=== PATIENT | female | born 1965 | race Caucasian/White ===

== ENCOUNTER 2022-02-01 09:53 | Outpatient (CLI) | payer BC, SELFPAY ==
[2022-02-01 20:37] LABS: Kit Draw Collected
== END 2022-02-01 09:54 | disposition home or self-care (01) ==
LOC: ANHGOSHLAB 09:55
PROVIDERS: PCP Family Medicine; Visit Provider Physician Assistant
DX: N95.0 Postmenopausal bleeding (principal); D72.820 Lymphocytosis (symptomatic)
CPT/HCPCS: 36415

== ENCOUNTER → 2022-02-02 13:48 | Outpatient (CLI) | payer BC, SELFPAY ==
--- NOTE | ~2022-02-02 | US_ITS ---
Pelvic ultrasound. Clinical History: Postmenopausal bleeding Technique: Realtime transabdominal and transvaginal scanning of the pelvis was performed. Color flow Doppler and Doppler spectral analysis were performed. Findings: The uterus is anteverted. The endometrial stripe has a thickness of up to 7 mm. Small intr amural fibroid measures 1.5 cm in diameter. The right ovary measures 2.0 x 1.4 x 1.2 cm. No significant right ovarian or adnexal mass is seen. The left ovary measures 1.5 x 0.8 x 1.1 cm. No significant left ovarian or adnexal mass is seen. Vascular flow present in both ovaries on Doppler spectral analysis. There is no evidence of free fluid in the cul de sac. Impression: Endometrial stripe is minimally thickened for a postmenopausal woman, unless the patient is on hormon e replacement therapy. Given the mild thickening, advise further workup to evaluate for endometrial h yperplasia versus endometrial neoplasm. Reviewed, dictated and finalized at location [] [employer]ST[employer]ER Impression: Endometrial stripe is minimally thickened for a postmenopausal woman, unless th e patient is on hormone replacement therapy. Given the mild thickening, advise further workup to evaluate for endometrial hyperplasia versus endometrial neopl asm.
== END ==
PROVIDERS: PCP Physician Assistant; Visit Provider Physician Assistant
DX: N95.0 Postmenopausal bleeding (principal)
CPT/HCPCS: 76830; 76856

== ENCOUNTER 2022-03-02 01:23 | Day surgery (SDC) | payer BC, SELFPAY ==
[2022-02-23 13:43] VITALS: BMI 24.2
--- NOTE | 2022-02-23 14:06 | SUR.PREOP ---
Report to the Outpatient Waiting Room, entrance under the green pavilion located off [facility], at time 0900 on date 03/02/21. Planned Procedure Time: 1100. Time changes happen often and if your time is changed the preop area will call you the afternoon before. - You and your visitor will be asked to self-screen and do not enter if you have any COVID symptoms. - Only one visitor is requested with a max of two and NO children visitors are allowed at this time. - The patient visitor may be requested to leave or wait in car when not with patient due to distancing restrictions. - A mask is optional within the hospital. Patients may have clear liquids (water, carbonated beverages, clear teas, apple juice) until 3 hours prior to surgery with a maximum of 20 ounces (0800). - No food from midnight until time of surgery - Infants may have breast milk until 4 hours before surgery, formula 6 hours prior to surgery. - Children will be allowed to drink immediately following surgery. If applicable, please bring a bottle or sippy cup to assist with drinking. Juice, water, soda, and popsicles are readily available. For infants on formula, please bring formula the day of surgery. Pacifiers are allowed. Take the following medications with a SIP of water the morning of surgery: Prozac Medications to discontinue per physician N/A Date to take last dose N/A Please no make-up, nail hong konger, hairspray, perfume, deodorant, or body powder the day of surgery. No jewelry (including any body piercings) or valuables the day of surgery, leave them at home. Please take a shower or bath the night before, or the morning of, surgery with an antibacterial soap. Wear comfortable, loose fitting clothing. Children are encouraged to wear pajamas. - Jewelry must be removed prior to entering the operating room. Rings and piercings that are not removed may be cut off. - The hospital will not accept responsibility for valuables. - Please leave all valuables, including medications, at home the day of surgery. If you are going home after surgery, a licensed local bulk driver must drive you home. - NO public transportation without another adult if you receive anesthesia. - We recommend that an adult stay with you for 24 hours following discharge. - We also recommend that you do not drive, make important decision, drink alcoholic beverages, or take any drugs that were not prescribed by your health care provider for at least 24 hours after your discharge time. For Pediatric surgeries, we recommend two adults accompany the child home. Follow any additional instructions given to you from your surgeon. If you or anyone in your household have experienced Covid symptoms in the past week, please notify your surgeon or the nurse liaison at the phone number below for possible testing. Telephone instructions given to patient and asked if any additional questions and then verbalized understanding. Patient advised to call surgeon office or pre surgery nurse liaison [phone] if any additional questions.
--- NOTE | 2022-02-28 07:56 | PM.IMHP ---
H&P: HPI History of Present Illness Date/Time: 02/28/22 07:56 Chief Complaint: Postmenopausal bleeding Narrative: This is a 56-year-old female admitted for hysteroscopy dilatation curettage secondary to postmenopausal bleeding. She none. For 2 years. She had an episode of bleeding and underwent ultrasound showed thickened endometrium for age. Risks and benefits of this procedure reviewed including exclusive of , aspiration, bleeding, transfusion, perforation under bowel, bladder, ureter, or other internal organs with need for open laparotomy. She received the ACOG handout entitled hysteroscopy as well as dilatation curettage. She had all questions answered. She asked to proceed PMF Past Medical History Medical History Allergic rhinitis Family History Family History Mother Hypertension Family history of dementia Father Acute myocardial infarction Sibling Family history of malignant neoplasm of breast in first degree relative Other Cerebrovascular accident Depression Family history of cardiovascular disease Family history of malignant neoplasm of breast Social History Social History Smoking status: Never smoker Second hand tobacco smoke exposure: No Alcohol intake: former Alcohol use details: Rarely Substance use: never Substance use type: does not use Lack of Transportation: No Lack of Food: Never True Current Housing: I Have Housing Concerned About Future Housing: No Difficulty Paying Gas/Electric Bills: No Difficulty Paying for Meds: No Currently Unemployed: No Education: Master's Degree or Higher Difficulty w/ Childcare or Family Care: No Living arrangements: alone Gender identity (if verbalized by the patient): Female Spiritual care concerns: No Meds Home Medications and Allergies Home Medications Medication Instructions Recorded Confirmed Type metoprolol succinate 25 mg See Rx Instructions .Route 10/03/21 02/23/22 Rx tablet,extended release 24 hr .COMPLEX #90 tabs doxycycline monohydrate 100 mg 100 mg PO BID #20 caps 02/22/22 02/23/22 Rx capsule alprazolam 0.5 mg tablet (Xanax) 0.5 mg PO QHS PRN Insomnia 02/23/22 02/23/22 History cetirizine 10 mg tablet (Zyrtec) 10 mg PO DAILY 02/23/22 02/23/22 History fluoxetine 40 mg capsule (Prozac) 40 mg PO DAILY 02/23/22 02/23/22 History Allergies Allergy/AdvReac Type Severity Reaction Status Date / Time amoxicillin [From Augmentin] Allergy Mild Hives Verified 02/23/22 14:08 ciprofloxacin Allergy Mild hives Verified 02/23/22 14:08 clavulanic acid Allergy Mild Hives Verified 02/23/22 13:44 [From Augmentin] Exam Const: General: cooperative, healthy appearing and comfortable Nutritional Appearance: average body habitus Orientation/consciousness: oriented to person, oriented to place and oriented to time Resp: Effort & Inspection: normal respiratory effort Cardio: Rate: regular rate Rhythm: regular rhythm Heart sounds: S1 normal heart sound present and S2 normal heart sound present GI: Inspection: normal to inspection : External Female Exam: normal external appearance Speculum Exam - Vagina: normal appearance of the vagina Speculum Exam - Cervix: normal appearance of the cervix Bimanual exam- vagina & uterus: uterine size normal Bimanual Exam- Adnexa, other: normal adnexae Assessment and Plan Assessment and plan (1) Postmenopausal bleeding: Code(s): N95.0 - Postmenopausal bleeding Status: Acute Plan Hysteroscopy/dilatation curettage
--- NOTE | 2022-03-02 07:11 | WPDHPUPDATE1 ---
History and Physical Update Update Date/Time: 03/02/22 07:11 History and Physical has been reviewed, including an updated exam of the patient. There are NO changes in the patient's condition. Risks, benefits, and alternatives have been discussed and questions answered. Patient agrees to proceed with procedure.
[2022-03-02 10:29] VITALS: BP 144/76; PULSE 65; RESP 20; TEMP 36.4; O2SAT 100
[2022-03-02] MEDS: ACETAMINOPHEN 500 MG TABLET 1000 MG PO (10:51)
--- NOTE | 2022-03-02 10:57 | WPDANESEPPF ---
Anes - Initial Pre Proc Eval Procedure: Operation Date: 03/02/22 11:00 Proposed Procedures p Hysteroscopy Dilation and Curettage - Shalom Leija MD Date/Time: 03/02/22 10:57 Surgeon: Shalom Leija MD Pre Op Diagnosis: Post Menopausal Bleeding Patient Data Age: 56 Gender: F Height: 1.68 m Weight: 68.1 kg Allergies Allergy/AdvReac Type Severity Reaction Status Date / Time ciprofloxacin Allergy Mild hives Verified 03/02/22 10:32 clavulanic acid Allergy Mild Hives Verified 03/02/22 10:32 [From Augmentin] Home Medications Medication Instructions Recorded Confirmed Type metoprolol succinate 25 mg See Rx Instructions .Route 10/03/21 02/23/22 Rx tablet,extended release 24 hr .COMPLEX #90 tabs doxycycline monohydrate 100 mg 100 mg PO BID #20 caps 02/22/22 03/02/22 Rx capsule alprazolam 0.5 mg tablet (Xanax) 0.5 mg PO QHS PRN Insomnia 02/23/22 03/02/22 History cetirizine 10 mg tablet (Zyrtec) 10 mg PO DAILY 02/23/22 02/23/22 History fluoxetine 40 mg capsule (Prozac) 40 mg PO DAILY 02/23/22 02/23/22 History hydrocodone 5 mg-acetaminophen 325 1 tablet PO Q4H PRN pain #14 tabs 03/02/22 Rx mg tablet Patient hx anesthesia problems: none Family hx anesthesia problems: none Results Review: All pre-operative results and documents have been reviewed as part of the pre-operative evaluation. [facility] Past Medical History Medical History Allergic rhinitis Family History Family History Mother Hypertension Family history of dementia Father Acute myocardial infarction Sibling Family history of malignant neoplasm of breast in first degree relative Other Cerebrovascular accident Depression Family history of cardiovascular disease Family history of malignant neoplasm of breast Social History Social History Smoking status: Never smoker Second hand tobacco smoke exposure: No Alcohol intake: former Alcohol use details: Rarely Substance use: never Substance use type: does not use Lack of Transportation: No Lack of Food: Never True Current Housing: I Have Housing Concerned About Future Housing: No Difficulty Paying Gas/Electric Bills: No Difficulty Paying for Meds: No Currently Unemployed: No Education: Master's Degree or Higher Difficulty w/ Childcare or Family Care: No Living arrangements: alone Gender identity (if verbalized by the patient): Female Spiritual care concerns: No Anes - Eval Final PreProcedure Day of Procedure 03/02/22 10:57 Patient weight: normal Heart: regular rate and rhythm Lungs: clear to auscultation Airway: Mallampati scale class II Neurological: alert and oriented Last oral intake: >/= 8 hours ASA classification: II Emergent: no Anesthetic plan: proceed Anesthesia type and monitoring: general GIVS and standard monitoring Results Review: All pre-operative results and documents have been reviewed as part of the pre-operative evaluation. Informed Consent: The patient's anesthetic plan and its attendant risks and benefits were discussed with the patient/family/POA. Questions were solicited and answers provided to the satisfaction of the patient/family/POA.
[2022-03-02] MEDS: LACTATED RINGERS 1,000 ML 30 ML IV CONT (11:00)
[2022-03-02] MEDS: LIDOCAINE 1% BUFFERED WITH 8.4% SODIUM BICARB 1 ML SYRINGE 10 ML INFILTRATE (12:07)
--- NOTE | 2022-03-02 12:16 | W.PM.PROC2 ---
Procedure Note - Detailed Date of Procedure 03/02/22 Pre-op Diagnosis Post Menopausal Bleeding Post-op Diagnosis Other (Uterine polyp) Procedure Performed hysteroscopy/polypectomy Surgeon Shalom Leija MD Anesthesia MAC and Local Indications this is a 56-year-old female with postmenopausal bleeding Findings a benign-appearing uterine polyp was noticed at the uterine fundus. The remainder of the uterine cavity appeared within normal limits Description of Procedure patient was prepped draped in the normal sterile fashion placed in dorsal lithotomy position. Under excellent IV sedation weighted speculum placed in posterior fornix vagina. Anterior lip of the cervix grasped with single-tooth tenaculum 2.5cc of% xylocaine anesthesia placed at 2, 4 8, 10 cervix. Uterus sounded to 8cm. Serial dilatation fragmented dilators performed followed by passes the via hysteroscopy hysteroscope. Normal saline was used as visualizing medium. The uterine polyp was seen the uterine polyp was resected with the avita machine blood loss was estimated about 5cc. The instruments withdrawn the patient tolerated the procedure well. All sponge, needle, instrument counts were correct. No immediate complications Estimated Blood Loss 5 Drains No Packing No Pathology Yes Complications No immediate complications Condition Stable Disposition PACU
[2022-03-02 12:19] VITALS: BP 79/46; PULSE 66; RESP 10; O2SAT 100
[2022-03-02 12:45] VITALS: BP 88/56; PULSE 64; RESP 14; O2SAT 100
[2022-03-02 13:00] VITALS: BP 123/78; PULSE 81; RESP 16
[2022-03-02 13:35] VITALS: BP 131/78; PULSE 64; RESP 16
== END 2022-03-02 13:40 | disposition home or self-care (01) ==
PROVIDERS: PCP Family Medicine; Visit Provider Obstetrics & Gynecology
PROC: 0U5B8ZZ Destruction of Endometrium, Via Natural or Artificial Opening Endoscopic (ICD-10-PCS; CPT 58563; principal; 2022-03-02 11:00)
DX: N95.0 Postmenopausal bleeding (principal); N84.0 Polyp of corpus uteri
CPT/HCPCS: 58558; 88305; A9270; J2250; J2704; J3010; J7120

== ENCOUNTER → 2022-04-20 10:24 | Outpatient (CLI) | payer BC, SELFPAY ==
--- NOTE | ~2022-04-20 | MM_ITS ---
EXAMINATION: MM screening dominique BI w iker HISTORY: Screening TECHNIQUE: Craniocaudal and mediolateral oblique 3-D tomosynthesis images were obtained and synthetic 2-D images were generated. CAD analysis was submitted and interpreted. COMPARISON: 09/10/2013 BREAST PARENCHYMAL COMPOSITION: The breasts are heterogeneously dense, which may obscure small masses FINDINGS: There are scattered nodular asymmetries in the right breast in the upper outer quadrant of the left breast. There are scattered benign calcifications. No discrete architectural distortion is s een. IMPRESSION: 1. Bilateral nodular asymmetries. 2. Additional mammographic views and possible breast ultrasound are recommended. BI-RADS Category 0: Incomplete: Needs additional imaging evaluation. Reviewed, dictated and finalized at location B. OPERATOR IMPRESSION: 1. Bilateral nodular asymmetries. 2. Additional mammographic views and possible breast ultrasound are recommended . BI-RADS Category 0: Incomplete: Needs additional imaging evaluation.
== END ==
PROVIDERS: PCP Family Medicine; Visit Provider Family Medicine
DX: Z12.31 Encounter for screening mammogram for malignant neoplasm of breast (principal); R92.8 Other abnormal and inconclusive findings on diagnostic imaging of breast
CPT/HCPCS: 77063; 77067

== ENCOUNTER 2022-05-09 11:13 | Outpatient (CLI) | payer BC, SELFPAY ==
--- NOTE | ~2022-05-09 | MMUS_ITS ---
EXAMINATION: MM diagnostic dominique BI w iker, US breast BI complete HISTORY: Follow-up bilateral nodular asymmetries. TECHNIQUE: Additional 3-D tomosynthesis images of the breasts were performed and synthetic 2-D images were generated. CAD analysis was submitted and interpreted. High resolution bilateral complete breas t ultrasound was performed. COMPARISON: Comparison to multiple prior studies sequentially, with oldest reviewed study dated 09/10. BREAST PARENCHYMAL COMPOSITION: The breasts are heterogeneously dense, which may obscure small masses FINDINGS: MAMMOGRAPHIC FINDINGS: There is a a mass in the upper inner quadrant of the right breast. There are no discrete masses, susp icious calcifications or architectural distortion in the left breast to suggest malignancy. ULTRASOUND: Complete bilateral US of all 4 quadrants of the breasts and retroareolar region was reviewed. There a re multiple bilateral breast cysts. In the right breast at 10:00, 2 cm from the nipple there is an ov al hypoechoic mass measuring 8 mm maximum dimension with echogenic hilum and slightly irregular gino ns, parallel orientation, no posterior features and no internal vascularity. This likely represents a n intramammary lymph node. No suspicious masses are identified in the left breast to suggest malignan cy. IMPRESSION: 1. Probable benign right breast mass at 10:00, 2 cm from the nipple. 2. Recommend 6 month follow-up diagnostic right mammogram and ultrasound BI-RADS category 3, probably benign findings. Reviewed, dictated and finalized at location A. IMPRESSION: 1. Probable benign right breast mass at 10:00, 2 cm from the nipple. 2. Recommend 6 month follow-up diagnostic right mammogram and ultrasound BI-RADS category 3, probably benign findings.
== END 2022-05-09 11:14 | disposition home or self-care (01) ==
LOC: ANHIMG 11:15
PROVIDERS: PCP Family Medicine; Visit Provider Family Medicine
DX: R92.8 Other abnormal and inconclusive findings on diagnostic imaging of breast (principal)
CPT/HCPCS: 76641; 77062; 77066; G0279

== ENCOUNTER → 2022-12-18 14:15 | Outpatient (CLI) | payer BC, SELFPAY ==
--- NOTE | ~2022-12-18 | MMUS_ITS ---
EXAMINATION: MM diagnostic dominique RT w iker, US breast RT limited HISTORY: Six-month follow-up for probably benign right breast mass TECHNIQUE: Craniocaudal, mediolateral, and mediolateral oblique 3-D tomosynthesis images of the right breast were performed and synthetic 2-D images were generated. CAD analysis was submitted and interp reted. High resolution limited right breast ultrasound was performed. COMPARISON: 05/09/2022, 04/20/2022, 09/10/2013 BREAST PARENCHYMAL COMPOSITION: The breasts are heterogeneously dense, which may obscure small masses . FINDINGS: MAMMOGRAPHIC FINDINGS: There is a stable 7 mm circumscribed low-density mass in the far posterior third of the breast at the 3:00 location, 7 cm from the nipple. There has been no suspicious interval change. ULTRASOUND: The previously described mass at the 10:00 location of the right breast is no longer identified. Ther e is a 3 mm x 2 mm oval, circumscribed, parallel, hypoechoic mass with no posterior features or inter nal vascularity at the 1:00 location, 2 cm from the nipple. There is a 7 mm x 3 mm oval, circumscribe d, parallel, hypoechoic mass with no posterior features or internal vascularity at the 1:00 location, 4 cm from the nipple. IMPRESSION: 1. Probably benign right breast masses. 2. Recommend 6 month follow-up diagnostic mammogram and ultrasound. BI-RADS category 3, probably benign findings. Reviewed, dictated and finalized at location A. IMPRESSION: 1. Probably benign right breast masses. 2. Recommend 6 month follow-up diagnostic mammogram and ultrasound. BI-RADS category 3, probably benign findings.
== END ==
PROVIDERS: PCP Family Medicine; Visit Provider Family Medicine
DX: R92.8 Other abnormal and inconclusive findings on diagnostic imaging of breast (principal)
CPT/HCPCS: 76642; 77061; 77065; G0279

== ENCOUNTER 2023-08-02 12:55 | Outpatient (CLI) | payer BC, SELFPAY ==
--- NOTE | ~2023-08-02 | MMUS_ITS ---
EXAMINATION: MM diagnostic dominique BI w iker, US breast RT complete HISTORY: Follow-up breast masses TECHNIQUE: Additional 3-D tomosynthesis images of the breasts were performed and synthetic 2-D images were generated. CAD analysis was submitted and interpreted. High resolution complete right breast ul trasound was performed. COMPARISON: Comparison to multiple prior studies sequentially, with oldest reviewed study dated 09/10. BREAST PARENCHYMAL COMPOSITION: Dense: The breasts are heterogeneously dense, which may obscure small masses FINDINGS: MAMMOGRAPHIC FINDINGS: There are stable right breast masses by mammography. No new masses, calcifications or architectural d istortion in either breast to suggest malignancy. ULTRASOUND: Complete US of all 4 quadrants of the right breast and retroareolar region was reviewed. At 1:00, 2 c m from the nipple, there is a 3 mm cyst. At 1:00, 4 cm from the nipple, there is a benign-appearing 7 mm intramammary lymph node. At 9:00, 1 cm from the nipple, there is a 5 mm cyst. At 9:00, 1 cm from the nipple there is a 5 mm cyst. No suspicious sonographic abnormalities to suggest malignancy. IMPRESSION: 1. No evidence for malignancy in either breast. Benign findings. 2. Routine yearly screening mammogram and regular clinical breast examination are recommended. BI-RADS Category 2: Benign finding(s). Reviewed, dictated and finalized at location B. IMPRESSION: 1. No evidence for malignancy in either breast. Benign findings. 2. Routine yearly screening mammogram and regular clinical breast examination a re recommended. BI-RADS Category 2: Benign finding(s).
== END 2023-08-02 12:56 | disposition home or self-care (01) ==
LOC: ANHIMG 13:01
PROVIDERS: PCP Family Medicine; Visit Provider Family Medicine
DX: R92.8 Other abnormal and inconclusive findings on diagnostic imaging of breast (principal)
CPT/HCPCS: 76641; 77062; 77066; G0279

== ENCOUNTER 2023-10-03 01:31 | Day surgery (SDC) | payer BC, SELFPAY ==
[2023-09-24 14:27] VITALS: BMI 24.9
[2023-10-03 06:15] VITALS: BP 123/80; PULSE 78; RESP 16; TEMP 36.3; O2SAT 100; BMI 25.0
[2023-10-03] MEDS: LACTATED RINGERS 1,000 ML 150 ML IV CONT (06:34)
--- NOTE | 2023-10-03 07:08 | WPDANESEPPF ---
Anes - Initial Pre Proc Eval Procedure: Operation Date: 10/03/23 07:30 Proposed Procedures p Screening Colonoscopy - Joe Rivera DO Date/Time: 10/03/23 07:08 Surgeon: Joe Rivera DO Pre Op Diagnosis: Neoplasm screening Patient Data Age: 57 Gender: F Height: 1.68 m Weight: 70.4 kg Last Vital Signs Temp 97.4 F L 10/03/23 06:15 Pulse 78 10/03/23 06:15 Resp 16 10/03/23 06:15 BP 123/80 10/03/23 06:15 Pulse Ox 100 10/03/23 06:15 O2 Del Method Room Air 10/03/23 06:15 Allergies Allergy/AdvReac Type Severity Reaction Status Date / Time benzalkonium chloride Allergy Intermediate Swelling Verified 10/03/23 06:22 ciprofloxacin Allergy Mild hives Verified 10/03/23 06:22 clavulanic acid Allergy Mild Hives Verified 10/03/23 06:22 [From Augmentin] edetate disodium dihydrate Allergy Other Uncoded 10/03/23 06:22 Home Medications Medication Instructions Recorded Confirmed Type cetirizine 10 mg tablet (Zyrtec) 10 mg PO DAILY 02/23/22 10/03/23 History metoprolol succinate 25 mg See Rx Instructions .Route 11/06/22 10/03/23 Rx tablet,extended release 24 hr .COMPLEX #90 tabs ibuprofen 600 mg tablet 600 mg PO DAILY PRN Pain 05/14/23 10/03/23 History fluoxetine 20 mg capsule 60 mg PO DAILY #270 caps 07/30/23 10/03/23 Rx alprazolam 0.5 mg tablet 0.5 mg PO QHS PRN anxiety #90 tabs 09/10/23 10/03/23 Rx coenzyme Q10 10 mg tablet 10 mg PO ONCE 09/24/23 10/03/23 History multivit with minerals-iron 18 1 tablet PO DAILY 09/24/23 10/03/23 History mg-folic ac 400 mcg-vit K 25 mcg tablet (Adults Multivitamin) Patient hx anesthesia problems: none Family hx anesthesia problems: none Results Review: All pre-operative results and documents have been reviewed as part of the pre-operative evaluation. [facility] Past Medical History Medical History Allergic rhinitis Family History Family History Mother Hypertension Family history of dementia Father Acute myocardial infarction Sibling Family history of malignant neoplasm of breast in first degree relative Other Cerebrovascular accident Depression Family history of cardiovascular disease Family history of malignant neoplasm of breast Social History Social History Smoking status: Never smoker Second hand tobacco smoke exposure: No Alcohol intake: former Alcohol use details: Rarely Substance use: never Substance use type: does not use Lack of Transportation: No Lack of Food: Never True Current Housing: I Have Housing Concerned About Future Housing: No Difficulty Paying Gas/Electric Bills: No Difficulty Paying for Meds: No Currently Unemployed: No Education: Master's Degree or Higher Difficulty w/ Childcare or Family Care: No Living arrangements: with family Gender identity (if verbalized by the patient): Female Spiritual care concerns: No Anes - Eval Final PreProcedure Day of Procedure 10/03/23 07:08 Patient weight: normal Heart: regular rate and rhythm Lungs: clear to auscultation Airway: Mallampati scale Neurological: alert and oriented Last oral intake: >/= 8 hours ASA classification: II Emergent: no Anesthetic plan: proceed Anesthesia type and monitoring: general GIVS Results Review: All pre-operative results and documents have been reviewed as part of the pre-operative evaluation. Informed Consent: The patient's anesthetic plan and its attendant risks and benefits were discussed with the patient/family/POA. Questions were solicited and answers provided to the satisfaction of the patient/family/POA.
--- NOTE | 2023-10-03 07:25 | PM.IMHP ---
H&P: HPI History of Present Illness Date/Time: 10/03/23 07:25 Chief Complaint: Screening for colorectal cancer Narrative: this is a 57-year-old woman who presents for colonoscopy. She has never had a colonoscopy before. She denies any hematochezia melena. She denies any family history cancer. Review of Systems Review of Systems: All systems reviewed & are unremarkable except as noted in HPI and below Constitutional: Constitutional: Denies chills, Denies fever(s), Denies headache(s) and Denies weight loss Eyes: Eyes: Denies change in vision ENT: Denies dizziness, Denies headache(s), Denies neck mass and Denies throat swelling Cardiovascular: Cardiovascular: Denies chest pain, Denies lightheadedness and Denies dyspnea Respiratory: Respiratory: Denies cough, Denies dyspnea and Denies wheezing Gastrointestinal: Gastrointestinal: Denies abdominal pain, Denies change in bowel habits, Denies nausea and Denies vomiting Genitourinary: Genitourinary: Denies hematuria and Denies dysuria Musculoskeletal: Musculoskeletal: Reports as per HPI Integumentary/Breasts: Skin/Breast: Reports as per HPI Neurologic: Denies dizziness and Denies headache(s) Allergic/Immunologic: Allergic/Immunologic: Denies throat swelling and Denies wheezing [facility] Past Medical History Medical History Allergic rhinitis Family History Family History Mother Hypertension Family history of dementia Father Acute myocardial infarction Sibling Family history of malignant neoplasm of breast in first degree relative Other Cerebrovascular accident Depression Family history of cardiovascular disease Family history of malignant neoplasm of breast Social History Social History Smoking status: Never smoker Second hand tobacco smoke exposure: No Alcohol intake: former Alcohol use details: Rarely Substance use: never Substance use type: does not use Lack of Transportation: No Lack of Food: Never True Current Housing: I Have Housing Concerned About Future Housing: No Difficulty Paying Gas/Electric Bills: No Difficulty Paying for Meds: No Currently Unemployed: No Education: Master's Degree or Higher Difficulty w/ Childcare or Family Care: No Living arrangements: with family Gender identity (if verbalized by the patient): Female Spiritual care concerns: No Meds Home Medications and Allergies Home Medications Medication Instructions Recorded Confirmed Type cetirizine 10 mg tablet (Zyrtec) 10 mg PO DAILY 02/23/22 10/03/23 History metoprolol succinate 25 mg See Rx Instructions .Route 11/06/22 10/03/23 Rx tablet,extended release 24 hr .COMPLEX #90 tabs ibuprofen 600 mg tablet 600 mg PO DAILY PRN Pain 05/14/23 10/03/23 History fluoxetine 20 mg capsule 60 mg PO DAILY #270 caps 07/30/23 10/03/23 Rx alprazolam 0.5 mg tablet 0.5 mg PO QHS PRN anxiety #90 tabs 09/10/23 10/03/23 Rx coenzyme Q10 10 mg tablet 10 mg PO ONCE 09/24/23 10/03/23 History multivit with minerals-iron 18 1 tablet PO DAILY 09/24/23 10/03/23 History mg-folic ac 400 mcg-vit K 25 mcg tablet (Adults Multivitamin) Allergies Allergy/AdvReac Type Severity Reaction Status Date / Time benzalkonium chloride Allergy Intermediate Swelling Verified 10/03/23 06:22 ciprofloxacin Allergy Mild hives Verified 10/03/23 06:22 clavulanic acid Allergy Mild Hives Verified 10/03/23 06:22 [From Augmentin] edetate disodium dihydrate Allergy Other Uncoded 10/03/23 06:22 Vital Signs Vital Signs - 24 hr 10/03/23 06:15 Temperature 36.3 C L Pulse Rate 78 Respiratory Rate 16 Blood Pressure 123/80 Pulse Oximetry 100 Oxygen Delivery Room Air Exam Const: General: no acute distress and alert Orientation/consciousness: patient oriented x3 HENMT: Head: norm
[2023-10-03 07:55] VITALS: BP 87/56; PULSE 72; RESP 17; O2SAT 95
[2023-10-03 08:05] VITALS: BP 92/51; PULSE 70; RESP 16; O2SAT 95
[2023-10-03 08:15] VITALS: BP 101/48; PULSE 67; RESP 20; O2SAT 99
== END 2023-10-03 08:31 | disposition home or self-care (01) ==
PROVIDERS: PCP Family Medicine; Visit Provider Surgery
PROC: 0DJD8ZZ Inspection of Lower Intestinal Tract, Via Natural or Artificial Opening Endoscopic (ICD-10-PCS; CPT 45378; principal; 2023-10-03 07:30)
DX: Z12.11 Encounter for screening for malignant neoplasm of colon (principal); Z79.1 Long term (current) use of non-steroidal anti-inflammatories (NSAID); Z80.3 Family history of malignant neoplasm of breast; Z82.49 Family history of ischemic heart disease and other diseases of the circulatory system
CPT/HCPCS: 45378; J2704; J7120

== ENCOUNTER 2024-08-19 10:15 | Outpatient (CLI) | payer OTHER, SELFPAY ==
--- NOTE | ~2024-08-19 | MM_ITS ---
EXAMINATION: MM screening dominique BI w iker HISTORY: Screening mammogram, family history of breast cancer in her sister. TECHNIQUE: Craniocaudal and mediolateral oblique 3-D tomosynthesis images were obtained and synthetic 2-D images were generated. CAD analysis was submitted and interpreted. COMPARISON: 08/02/2023, 12/18/2022, 04/20/2022 BREAST PARENCHYMAL COMPOSITION:Not Dense. There are scattered areas of fibroglandular density. FINDINGS: No suspicious mass, calcification, or architectural distortion are identified in either quentin ast to suggest malignancy. There has been no suspicious interval change. IMPRESSION: No mammographic evidence of malignancy. Recommend routine screening mammography in one year. BI-RADS Category 1: Negative Reviewed, dictated and finalized at location .
--- OUTSIDE RECORDS SUMMARY | 2024-08-19 10:34 | XMS_ITS | Clinical Summary ---
Author Organization [facility] Address [address] [place] [address] Care Team Providers Care International Student Advisor Name Role Phone Unavailable Primary Care Provider Unavailabl e Source Comments [facility],non-owned Affiliates and Associated Physician Practices is amultiple site organization consisting of ambulatory clinics and hospital sitesin [place], [place], [place] and [place]. This disclosure is being madepursuant to the Care Everywhere program and may not contain all information available regarding this patient. Last updated 17.[facility] Allergies Active Allergy Reactions Criticality Noted Date Comments Augmentin Urticaria Medium 10/29/2016 Ciprofloxacin Urticaria Medium 10/29/2016 Medications * Be aware that medications may not be up to date on this document. Alwaysverify current medications with the patient. Cetirizine HCl (ZYRTEC PO) Active FLUoxetine (PROZAC) 40 MG capsule Take 40 mg by mouth once daily Active METOPROLOL SUCCINATE ER PO Acti ve ALPRAZolam (XANAX) 0.5 MG tablet Take 1 tablet by mouth every 12 hours 9 Active albuterol HFA (PROVENTIL;KRISTIN RIA;PROAIR) 108 (90 Base) MCG/ACT inhalerIndicatio ns:Acute bronchitis, unspecified organism Inhale 2 puffs by mouth every 6 hours as needed for Wheezing or Cough 1 Inhaler 0 Active Active Problems Problem Noted Date Diagnosed Date Immunization due 04/20/2019 Postmenopausal 04/20/2019 Dysuria 11/14/2017 Annual visit for general zeyad lt medical examination without abnormal findings 09/04/2017 Acute reaction to stress 06/19/2017 Essential (primary) hypertension 05/22/2016 Noninflammatory disorder of cervix uteri, unspec ified 12/24/2012 Lichen sclerosus et atrophicus 05/31/2010 Allergic rhinitis 06/02/2008 Dysthymic disorder 06/02/2008 Mild intermittent asthma, uncomplicated 06/03/19 09 Family History Medical History Relation Name Comments Alzheimer's Disease Mother Cancer - Breast Sister Relation Name Status Comments Mother Sister Social History Tobacco Use Types Packs/Day Years Used Date Smoking Tobacco: Never Smokeless Tobacco: Never Comments No Sex and Gender Information Value Date Recorded Sex Assigned at Not on file Legal Sex Female 3:23 PM CDT Gender Identity Female 11/11/2016 2:34 PM CDT Sexual Orientation Not on file Last Filed Vital Signs Vital Sign Reading Time Taken Comments Blood Pressure 128/80 04/20/2019 12:20 PM ENTRY LEVEL ASSISTANT MANAGER Pulse 63 04/20/2019 12:20 PM ENTRY LEVEL ASSISTANT MANAGER Temperature 36.7 C (98.1 F) 04/20/2019 12:20 PM ENTRY LEVEL ASSISTANT MANAGER Respiratory Rate 16 04/20/2019 12:20 PM ENTRY LEVEL ASSISTANT MANAGER Oxygen Saturation 98% 04/20/2019 12:20 PM ENTRY LEVEL ASSISTANT MANAGER Inhaled Oxygen Concentration - - Weight 62.6 kg (138 lb) 04/20/2019 12:20 PM ENTRY LEVEL ASSISTANT MANAGER Height 167.6 cm (5' 6) 04/20/2019 12:20 PM ENTRY LEVEL ASSISTANT MANAGER Body Mass Index 22.27 04/20/2019 12:20 PM ENTRY LEVEL ASSISTANT MANAGER Plan of Treatment Health Maintenance Due Date Last Done Comments COLOGUARD (AGES 45-75) - COL ON CA SCREENING 1965 COLON MONITORING 1965 COLONOSCOPY - COLON CA SCREENING 1965 CT COLONOGRAPHY - COLON CA SCREENING 1965 Colorectal Cancer Screening 1965 FIT - COLON CA SCREENING 1965 FLEX SIG - COLON CA SCREENING 1965 LIPID TESTING 1965 MAMMOGRAM 1965 HIV SCREENING 1980 HEPATITIS C SCREENING 10/07/1983 DTAP/TDAP/TD VACCINES (1 - Tdap) 1984 HEPATITIS B VACCINE (1 of 3 - 19+ 3-dose series) 1984 PNEUMOCOCCAL VACCINE 50+ (1 of 1 - PCV) 10/12/2015 ZOSTER VACCINE (1 of 2) 10/12/2015 COVID-19 VACCINE (1 2023-2 5 season) 2023 DEPRESSION SCREENING 02/19/2024 INFLUENZA VACCINE (Season Ended) 2024 12/26/19 07 HIB VACCINE Aged Out No longer eligi ble based on patient's age to complete this topic HPV VACCINE Aged Out No longer eligi ble based on patient's age to complete this topic MENINGOCOCCAL (Group B) VACC INE SHARED DECISION-MAKING Aged Out No longer eligibl e based on patient's age to complete this topic MENINGOCOCCAL GROUPS A/C/Y/W VACCINE Aged Out No longer eligible b ased on patient's age to complete this topic Insurance [employer]
== END 2024-08-19 10:16 | disposition home or self-care (01) ==
LOC: ANHIMG 10:18
PROVIDERS: PCP Family Medicine; Visit Provider Family Medicine
DX: Z12.31 Encounter for screening mammogram for malignant neoplasm of breast (principal); Z80.3 Family history of malignant neoplasm of breast
CPT/HCPCS: 77063; 77067

== ENCOUNTER 2024-11-06 10:18 | Outpatient (CLI) | payer OTHER, SELFPAY ==
--- NOTE | ~2024-11-06 | DEXA_ITS ---
Bone Density Report Name: JUANCARLOS HOLLIS Age: 59 Sex: Female Ethnicity: White Date of : 1965 Indication: postmenopausal; screening for osteoporosis; height loss; Referring Provider: CHRISTIANO GEORGE Study: Bone densitometry was performed. Exam Date: November 06, 2024 Accession number: [id number] Bone Density: Region BMD T-score Z-score Classification AP Spine(L1-L4) 0.900 -1.3 0.0 Osteopenia Femoral Neck (Left) 0.660 -1.7 -0.5 Osteopenia Total Hip (Left) 0.830 -0.9 0.0 Normal Femoral Neck (Right) 0.688 -1.5 -0.2 Osteopenia Total Hip (Right) 0.861 -0.7 0.2 Normal Total Hip Mean 0.846 -0.8 0.1 Normal World Health Organization criteria for BMD impression classify patients as: Normal (T-score at or above -1.0), Osteopenia (T-score between -1.0 and -2.5), or Osteoporosis (T-score at or below -2.5). 10-year Fracture Risk(1): Major Osteoporotic Fracture 8.1% Hip Fracture 0.7% Reported Risk Factors: [place] (), Neck BMD=0.660, BMI=26.6 (1) FRAX(R) Version 3.08. Fracture probability calculated for an untreated patient. Fracture probability may be lower if the patient has received treatment. Clinical Information Provided by Patient: Patient maximum height was 66 Menopause Age: 53 No regular weight bearing exercise Drinks caffeinated beverages Onset of menses at age 13 Number of children 1 Impression: The patient has low bone mass, based on the Left Femoral Neck T-score. The patient has an estimated ten-year risk of hip fracture of 0.7% and an estimated ten-year risk of major fracture of 8.1%, based on the WHO FRAX algorithm. Discussion: BONE DENSITY IS LOW AT ONE OR MORE SKELETAL SITES. This patient's lowest T-score is low at one or more skeletal sites. It meets the World Health Organization's (WHO) criteria for ?low bone mass? (T-score between -1.0 and -2.5). The patient's 10-year risk of fracture as calculated by FRAX is less than the threshold where pharmacological therapy is recommended by the National Osteoporosis Foundation (NOF). However, all treatment decisions require clinical judgment and consideration of individual patient factors, including patient preferences, comorbidities, previous drug use, risk factors not captured in the FRAX model (e.g., frailty, falls, vitamin D deficiency, increased bone turnover, interval significant decline in bone density) and possible under or overestimation of fracture risk by FRAX. The patient should follow a healthful lifestyle (good nutrition with adequate calcium and vitamin D, and appropriate weight-bearing exercise). Follow-Up: Consider repeating this study in 2 to 3 years to reassess this patient's status, or sooner if there is some new clinical indication. Reported by: KEN on 11/06/2024 10:59:00 AM. Reviewed, dictated and finalized at location A.
--- OUTSIDE RECORDS SUMMARY | 2024-11-06 10:21 | XMS_ITS | Clinical Summary ---
Author Organization [facility] Address [address] [place] [address] Care Team Providers Care Hydroelectric Production Manager Name Role Phone Unavailable Primary Care Provider Unavailabl e Source Comments [facility],non-owned Affiliates and Associated Physician Practices is amultiple site organization consisting of ambulatory clinics and hospital sitesin [place], [place], [place] and [place]. This disclosure is being madepursuant to the Care Everywhere program and may not contain all information available regarding this patient. Last updated 17.[facility] Allergies Active Allergy Reactions Criticality Noted Date [...] Comments Blood Pressure 128/80 04/20/2019 12:20 PM MANAGER PRICING Pulse 63 04/20/2019 12:20 PM MANAGER PRICING Temperature 36.7 C (98.1 F) 04/20/2019 12:20 PM MANAGER PRICING Respiratory Rate 16 04/20/2019 12:20 PM MANAGER PRICING Oxygen Saturation 98% 04/20/2019 12:20 PM MANAGER PRICING Inhaled Oxygen Concentration - - Weight 62.6 kg (138 lb) 04/20/2019 12:20 PM MANAGER PRICING Height 167.6 cm (5' 6) 04/20/2019 12:20 PM MANAGER PRICING Body Mass Index 22.27 04/20/2019 12:20 PM MANAGER PRICING Plan of Treatment Health Maintenance Due Date [...] 10/12/2015 ZOSTER VACCINE (1 of 2) 10/12/2015 DEPRESSION SCREENING 02/19/2024 COVID-19 VACCINE (2023-2 5 season) 2024 INFLUENZA VACCINE (#1) 2024 12/25/2006 HIB VACCINE Aged Out No longer eligi [...]
== END 2024-11-06 10:19 | disposition home or self-care (01) ==
LOC: ANHFOHIMG 10:19
PROVIDERS: PCP Family Medicine; Visit Provider Family Medicine
DX: Z78.0 Asymptomatic menopausal state (principal); Z13.820 Encounter for screening for osteoporosis; M85.88 Other specified disorders of bone density and structure, other site; M85.852 Other specified disorders of bone density and structure, left thigh; M85.851 Other specified disorders of bone density and structure, right thigh
CPT/HCPCS: 77080